=== PATIENT | female | born 1960 | race African-American/Black ===

== ENCOUNTER 2016-07-24 15:29 | Emergency (ER) | payer OTHER ==
[~2016-07-24] VITALS: Ht 172.7 cm; Wt 99.8 kg
[2016-07-24] MEDS ORDERED: ASPI81TA21 PO (15:44)
[2016-07-24] MEDS ORDERED: [UNRECOGNIZED DRUG - OTHER] PO (15:44)
[2016-07-24] MEDS ORDERED: ALLE180T33 PO (15:44)
[2016-07-24] MEDS ORDERED: DILT180C53 PO (15:44)
[2016-07-24] MEDS ORDERED: FLON1SPR (15:44)
[2016-07-24] MEDS ORDERED: IPRATROPIUM 0.5MG/ALBUTEROL 2.5MG INH SOL UD 3ML (DUONEB)(J7620) NEB ONE (16:30)
[2016-07-24] MEDS ORDERED: GUAI5ELAC PO (17:24)
[2016-07-24] MEDS ORDERED: TESS100C PO (17:24)
[2016-07-24 17:29] VITALS: BP 141/89
--- NOTE | 2016-07-24 19:21 | REP ---
CHEST, TWO VIEWS: No comparison. PA and lateral views of the chest are performed. There is mild linear fibroatelectatic change in each lung bases. No consolidating infiltrate. The heart is normal in size. The mediastinal silhouette is unremarkable. There are degenerative changes of the spine. IMPRESSION: Mild bibasilar fibroatelectatic change. No infiltrate seen. Signed by Simone Sun MD 07/27/2016 08:34 A
== END 2016-07-24 17:33 | disposition home or self-care (01) ==
LOC: M ED 17:18
DX: J45.901 Unspecified asthma with (acute) exacerbation (principal); J06.9 Acute upper respiratory infection, unspecified; I48.91 Unspecified atrial fibrillation; I10 Essential (primary) hypertension; Z88.2 Allergy status to sulfonamides; Z79.899 Other long term (current) drug therapy; Z79.82 Long term (current) use of aspirin; Z79.51 Long term (current) use of inhaled steroids